=== PATIENT | male | born 1985 | race Caucasian/White ===

== ENCOUNTER → 2018-03-26 | Outpatient (CLI) | payer BC ==
--- NOTE | 2018-03-26 13:45 | KCIC ---
TESTICULAR/SCROTUM History: Testicular pain, left scrotal bruising Comparison: None. Findings: Multiple sonographic images of the testicles to include grayscale, color, and duplex spectral analysis waveform images are submitted. Right testicle measured 4.3 x 2.6 x 3.3 cm. Left testicle measured 4.2 x 2.2 x 3 cm. No intratesticular mass is demonstrated on either side, testicular parenchyma fairly homogeneous bilaterally. There is normal low resistance vascularity of interrogated intratesticular vessels bilaterally. There is left varicocele. Impression: 1. There is left varicocele. Electronically signed by: Bairon Washington MD (03/26/2018 1:42 PM) [id number]
== END | disposition home or self-care (01) ==
LOC: KCIC US 11:54
PROVIDERS: ATTEND Family Medicine
DX: S30.22XA Contusion of scrotum and testes, initial encounter (principal); I86.1 Scrotal varices; X58.XXXA Exposure to other specified factors, initial encounter; Y93.89 Activity, other specified; Y92.89 Other specified places as the place of occurrence of the external cause; Y99.8 Other external cause status
CPT/HCPCS: 76870